=== PATIENT | male | born 1950 | race Caucasian/White ===

== ENCOUNTER → 2024-09-28 08:14 | Outpatient (REF) | payer OTHER, SELFPAY | LOC: HWRAD 08:14 | PROVIDERS: ATTENDING PHYSICIAN Internal Medicine Cardiovascular Disease; FAMILY PHYSICIAN Family Medicine | DX: I35.1 Nonrheumatic aortic (valve) insufficiency (principal); I77.810 Thoracic aortic ectasia | CPT/HCPCS: 71250 ==